=== PATIENT | female | born 1965 | race Caucasian/White ===

== ENCOUNTER 2018-09-02 09:19 | Emergency (ER) | payer MEDICAID ==
[~2018-09-02] VITALS: Ht 149.9 cm; Wt 78.0 kg
[~2018-09-02 09:19] MED LIST: HYDR-4011 PO; IBUP-1542 PO; ONDA4TAB14 PO
[2018-09-02 09:25] VITALS: Ht 149.9 cm; Wt 78.0 kg
[2018-09-02] MEDS ORDERED: KETOROLAC 60 MG INJ IM STA (10:03)
[2018-09-02] MEDS ORDERED: FAMO-96 PO (12:35)
[2018-09-02] MEDS ORDERED: HYDR-4011 PO (12:35)
[2018-09-02] MEDS ORDERED: PROM6.2515 PO (12:35)
[2018-09-02 12:45] VITALS: BP 130/70; PULSE 79; RESP 20
--- NOTE | 2018-09-02 13:08 | ERD ---
ER Documentation Chief Complaint Chief Complaint shortness of breath HPI 52 yr old female complaining shortness of breath and abdominal pain. Denies any fevers. Patient has no sore throat and no runny nose. No cough. No fevers. Mild epigastric pain with no rebound tenderness. Denies medical problems. NKDA. Surgical history denies. Social history denies ROS All systems reviewed and are negative except as per history of present illness. Medications Home Meds Active Scripts Hydrocodone/Acetaminophen ([place] 5-325 Tablet) 1 Each Tablet, 1 TAB PO Q6H PRN for PAIN, #7 TAB Prov:MIKEY ABBOTT PA-C 09/02/18 Promethazine Hcl* (Promethazine Hcl* Syrup) 6.25 Mg/5 Ml Syrup, 6.25 MG PO Q6H PRN for COUGH, #100 ML Prov:MIKEY ABBOTT PA-C 09/02/18 Famotidine* (Pepcid*) 20 Mg Tablet, 20 MG PO BID for 4 Days, #30 TAB Prov:MIKEY ABBOTT PA-C 09/02/18 Ondansetron (Ondansetron Odt) 4 Mg Tab.rapdis, 4 MG PO Q8 PRN for NAUSEA AND/OR VOMITING, #10 TAB Prov:ISRA MALDONADO NP 06/30/16 Hydrocodone/Acetaminophen ([place] 5-325 Tablet) 1 Each Tablet, 1 TAB PO Q6H PRN for PAIN, #20 TAB Prov:ISRA MALDONADO NP 06/30/16 Reported Medications Ibuprofen* (Motrin*) Unknown Strength Tab, PO Q6, #30 TAB 06/30/16 Allergies Allergies: Coded Allergies: No Known Allergy (Unverified , 06/30/16) PMhx/Soc History of Surgery: Yes ( section) Anesthesia Reaction: No Hx Neurological Disorder: No Hx Respiratory Disorders: No Hx Cardiac Disorders: No Hx Psychiatric Problems: No Hx Alcohol Use: No Hx Substance Use: No Hx Tobacco Use: No FmHx Family History: No diabetes, No coronary disease, No other Physical Exam Vitals Vital Signs Date Temp Pulse Resp B/P (MAP) Pulse Ox O2 O2 Flow FiO2 Time Delivery Rate 09/02/18 97.2 79 20 130/70 99 Room Air 12:45 (90) 09/02/18 97.2 86 24 133/63 96 09:25 (86) Physical Exam GENERAL: The patient is well-appearing, well-nourished, in no acute distress HEENT: Atraumatic. Conjunctivae are pink. Pupils equal, round, and reactive to light. There is no scleral icterus. Tympanic membranes clear bilaterally. Oropharynx clear. CHEST: Clear to auscultation bilaterally. There are no rales, wheezes or rhonchi. HEART: Regular rate and rhythm. No murmurs, clicks, rubs or gallops. ABDOMEN: Normal active bowel sounds. No distention. No organomegaly. Tender to palpation in the right upper quadrant with no rebound tenderness. Result Diagram: 09/02/18 1022 09/02/18 1022 Results 24 hrs Laboratory Tests Test 09/02/18 10:22 09/02/18 11:49 White Blood Count 9.3 10^3/ul Red Blood Count 4.23 10^6/ul Hemoglobin 12.0 g/dl Hematocrit 37.8 % Mean Corpuscular Volume 89.4 fl Mean Corpuscular Hemoglobin 28.4 pg Mean Corpuscular Hemoglobin Concent 31.7 g/dl Red Cell Distribution Width 13.7 % Platelet Count 257 10^3/UL Mean Platelet Volume 8.7 fl Immature Granulocytes % 0.400 % Neutrophils % 71.4 % Lymphocytes % 18.7 % Monocytes % 5.8 % Eosinophils % 3.1 % Basophils % 0.6 % Nucleated Red Blood Cells % 0.0 /100WBC Immature Granulocytes # 0.040 10^3/ul Neutrophils # 6.6 10^3/ul Lymphocytes # 1.7 10^3/ul Monocytes # 0.5 10^3/ul Eosinophils # 0.3 10^3/ul Basophils # 0.1 10^3/ul Nucleated Red Blood Cells # 0.0 10^3/ul Sodium Level 144 mmol/L Potassium Level 3.8 mmol/L Chloride Level 107 mmol/L Carbon Dioxide Level 25 mmol/L Anion Gap 12 Blood Urea Nitrogen 12 mg/dl Creatinine 0.81 mg/dl Est Glomerular Filtrat Rate mL/min > 60 mL/min Glucose Level 110 mg/dl Calcium Level 9.5 mg/dl Total Bilirubin 0.8 mg/dl Direct Bilirubin 0.00 mg/dl Indirect Bilirubin 0.8 mg/dl Aspartate Amino Transf (AST/SGOT) 33 IU/L Alanine Aminotransferase (ALT/SGPT) 33 IU/L Alkaline Phosphatase 122 IU/L Troponin I < 0.012 ng/ml Total Protein 8.6 g/dl Albumin 4.3 g/dl Globulin 4.30 g/dl Albumin/Globulin Ratio 1.00 Lipase 60 U/L Urine Color YELLOW Urine Clarity CLEAR Urine pH 6.0 Urine Specific [place] 1.006 Urine Ketones NEGATIVE mg/dL Urine Nitrite NEGATIVE mg/dL Urine Bilirubin NEGATIVE mg/dL Urine Urobilinogen NEGATIVE mg/dL Urine Leukocyte Esterase NEGATIVE María/ul Urine Microscopic RBC 1 /HPF Urine Microscopic WBC 1 /HPF Urine Squamous Epithelial Cells FEW /HPF Urine Hemoglobin 1+ mg/dL Urine Glucose NEGATIVE mg/dL Urine Total Protein NEGATIVE mg/dl Current Medications Medications Dose Sig/Nallely Start Time Status Last (Trade) Ordered Route PRN Stop Time Admin Dose Reason Admin Ketorolac 60 mg ONCE STAT 09/02/18 DC 09/02/18 Tromethamine IM 10:03 10:17 (Toradol) 09/02/18 10:05 Procedures/MDM DIAGNOSTIC IMAGING REPORT Patient: BONIFACIO GARCES : 1965 Age: 52 Sex: F MR #: [id number] DOS: 09/02/18 1003 Ordering MD: JAILENE ABBOTT PA-C Location: [facility] Room/Bed: PROCEDURE: XR Chest. CLINICAL INDICATION: Abdominal pain TECHNIQUE: Single portable view of the chest was obtained COMPARISON: None FINDINGS: The heart and mediastinum are within normal limits. There are mild bibasilar atelectatic changes. The lungs are otherwise clear. There is no pleural effusion or pneumothorax. RPTAT: AA IMPRESSION: Mild bibasilar atelectatic changes. DIAGNOSTIC IMAGING REPORT Patient: BONIFACIO GARCES : 1965 Age: 52 Sex: F MR #: [id number] DOS: 09/02/18 1003 Ordering MD: JAILENE ABBOTT PA-C Location: [facility] Room/Bed: PROCEDURE: US Abdomen. CLINICAL INDICATION: abdominal pain TECHNIQUE: Multiple real-time images were acquired of the patient's right upper quadrant abdomen and retroperitoneum utilizing a high resolution transducer. COMPARISON: None FINDINGS: The liver demonstrates increased echogenicity. The liver is normal in size and no focal solid lesions are seen. The liver measures 15.6 cm in length. The portal vein is patent with normal direction of flow. No intrahepatic biliary dilatation is seen. No gallstones are identified within the gallbladder. There is no pericholecystic fluid or gallbladder wall thickening. The common bile duct me asures 6 mm in maximal dimension. The visualized portions of the pancreas are unremarkable. The tail of the pancreas is not seen. No free fluid is identified. The right kidney is normal in size, and demonstrate normal echogenicity and cortical thickness. The right kidney measures 11 cm in long dimension. There is no evidence of hydronephrosis. There are no kidney stones. RPTAT: AA IMPRESSION: Diffuse fatty infiltration of the liver. EKG #1 Rate/Rhythm: 74 bpm Normal Sinus Rhythm QRS, ST, T-waves: No changes consistent w/ acute ischemia. Right bundle branch block Impression: No evidence of ischemia or arrhythmia EKG # 2 Rate/Rhythm: 70 Normal Sinus Rhythm QRS, ST, T-waves: No changes consistent w/ acute ischemia. Right bundle branch block Impression: No evidence of ischemia or arrhythmia MDM: 52-year-old female presenting with epigastric pain and shortness of breath. I have considered possible cardiac or pulmonary emergencies but have low suspicion. Patient had a negative Wells criteria so I do not feel there is indication for blood work to rule out PE. Patient's troponin is within normal limits. Chest x-ray is within normal limits. Patient does not have signs of infectious etiology and vitals are stable. I have low suspicion for abdominal emergency. Patient's exam is non-concerning patient is discharged with stricter precautions and told to follow-up with primary care within 1-2 days for close evaluation. Patient is told if symptoms change or worsen to immediately return to the ER. All questions answered at discharge Departure Diagnosis: Primary Impression: Shortness of breath Condition: Stable Patient Instructions: Cough, Chronic, Uncertain Cause, (Adult), Epigastric Pain (Uncertain Cause) Referrals: COMMUNITY CLINICS YOU HAVE RECEIVED A MEDICAL SCREENING EXAM AND THE RESULTS INDICATE THAT YOU DO NOT HAVE A CONDITION THAT REQUIRES URGENT TREATMENT IN THE EMERGENCY DEPARTMENT. FURTHER EVALUATION AND TREATMENT OF YOUR CONDITION CAN WAIT UNTIL YOU ARE SEEN IN YOUR DOCTORS OFFICE WITHIN THE NEXT 1-2 DAYS. IT IS YOUR RESPONSIBILITY [facility] IF YOU HAVE A PRIMARY DOCTOR --you should call your primary doctor and schedule an appointment IF YOU DO NOT HAVE A PRIMARY DOCTOR YOU CAN CALL OUR PHYSICIAN REFERRAL HOTLINE AT IF YOU CAN NOT AFFORD TO SEE A PHYSICIAN YOU CAN CHOSE FROM THE FOLLOWING [facility] CL[facility]ICS [facility] [address] [facility] [address] [facility] [facility] [address] [facility] [address] [facility] [address] [facility] [address] Additional Instructions: FOLLOW UP WITH YOUR PRIMARY CARE PHYSICIAN TOMORROW.Return to this facility if you are not improving as expected. MIKEY ABBOTT PA-C Sep 02, 2018 13:08
== END 2018-09-02 12:45 | disposition home or self-care (01) ==
LOC: FTE 09:19
DX: R06.02 Shortness of breath (principal)
CPT/HCPCS: 36415; 71045; 76705; 80053; 81001; 83690; 84484; 85025; 93005; 96372